=== PATIENT | female | born 1955 | race Caucasian/White ===

== ENCOUNTER 2021-03-26 17:51 | Inpatient (IN) ==
[2021-03-26] MEDS ORDERED: IOPAMIDOL 100 ML BOTTLE IV ONE (17:52)
--- NOTE | 2021-03-26 17:59 | Emergency Department Note ---
Female Urogenital HPI General Chief complaint: Flank Pain Stated complaint: flank pain Time Seen by Provider: 03/26/21 17:58 Source: patient Mode of arrival: ambulatory Limitations: no limitations History of Present Illness HPI Narrative: This is 66-year-old female patient who presents with acute onset nausea and vomiting and right lower quadrant and flank pain with radiation to the groin. She's had some chills, but no fevers. She has a history of atrial fibrillation and she noted her pulse to be 137 bpm earlier in the day. She has had some urinary hesitancy, but no dysuria. She has noted some "pink urine." She denies history of kidney stones. She was on an antibiotic about a month ago that was prescribed by Dr. Michael for UTI. She cannot tell me what that antibiotic was but states it was for 10 days. Her medical history is otherwise notable for diabetes and hypertension. She was recently prescribed lisinopril and has been on this for about 2 weeks. She has not been able to keep medications down today. Heart rate is 124 bpm and an EKG shows sinus tachycardia and a QTc interval of 528 ms. Related Data Home Medications Medication Instructions Recorded Confirmed diltiazem HCl 180 mg PO DAILY 03/26/21 03/26/21 ergocalciferol (vitamin D2) 50 mcg PO QDAY 03/26/21 03/26/21 loratadine [Allerclear] 10 mg PO QDAY 03/26/21 03/26/21 metformin 500 mg PO TID 03/26/21 03/26/21 metoprolol tartrate See Rx Instructions .ROUTE 03/26/21 03/26/21 .COMPLEX PRN rivaroxaban [Xarelto] 20 mg PO DAILY 03/26/21 03/26/21 sertraline 150 mg PO DAILY 03/26/21 03/26/21 Allergies Allergy/AdvReac Type Severity Reaction Status Date / Time No Known Drug Allergies Allergy Verified 03/26/21 17:59 Review of Systems ROS ROS Narrative: Narrative: All systems ED: reviewed and negative except as stated. [facility] Narrative Patient History Narrative: Narrative: Medical/Surgical/Family History All Active Problems (Updated 03/26/21 @ 20:25 by Park Buckley PA-C) Obstructive uropathy (Acute) Encounter for immunization (Acute) Medical History Encounter for immunization Social History Smoking Status: Never smoker Exam Narrative Narrative: General: AOx3, NAD, nontoxic appearing. Pleasant and conversant. HEENT: PERRLA, EOMI, normocephalic. Moist mucous membranes. Normal facies. Chest: Symmetric, no pain to palpation Respiratory: Lungs clear to auscultation bilaterally. No respiratory distress. Unlabored breathing. Heart: Regular rate and rhythm, no murmurs/clicks/rubs. Abdomen: Tenderness to the epigastrium and right upper quadrant. She has negative McBurney sign. No sensory of mild right CVA tenderness. Normal bowel tones. No organomegaly. Extremities: Warm and well perfused. No edema. DP 2+ bilaterally. No venous stasis. Neuro: No focal deficits. Cranial nerves II-XII normal. Skin: Warm dry, no rashes or lesions, no cyanosis. Psych: Normal mood and affect Heme/Lymph: No bruising General Limitations: no limitations Course Course Course Narrative: 66-year-old female presents with acute onset nausea and vo miting with abdominal pain and right CVA tenderness with pain radiating to the right groin. Reevaluation(s) Reevaluation #1: Basic labs, UA, [id number] creatinine and abdominal ultrasound with contrast. Antiemetics and analgesics IV fluids Given her tachycardia will work-up for sepsis with a lactic acid and blood cultures Reevaluation #2: Lactic acid is elevated at 3.4. Telemetry is showing atrial fibrillation. Her UA is incomplete but does show positive leukocyte esterase and negative nitrates. White blood cell count is elevated at 12.9. She does have a creatinine of 1.2. Blood glucose is elevated at 193. CT scan with contrast shows a moderate right-sided hydroureteronephrosis secondary to an obstructing 9 x 8 mm right UPJ calculus. There is associated periureteral and perinephric fat stranding. Dr. Tovar, urology has been notified and he will be asking the hospitalist service to admit with urology consulting. Plan is for placement of a ureteral stent. Vital Signs Vital signs: Vital Signs Temperature 97.7 F 03/26/21 17:51 Pulse Rate 111 H 03/26/21 17:51 Respiratory Rate 16 03/26/21 17:51 Blood Pressure 184/93 03/26/21 17:51 Pulse Oximetry (%) 97 03/26/21 17:51 Temperature 97.6 F 03/27/21 04:46 Pulse Rate 54 L 03/27/21 00:02 Respiratory Rate 13 03/27/21 04:01 Blood Pressure 126/87 03/27/21 04:01 Pulse Oximetry (%) 99 03/27/21 06:58 MDM MDM Narrative Medical decision making narrative: Obstructive uropathy Right ureteral lithiasis Lactic acidosis Sepsis The patient has been given 1 L IV fluid replacement. She has been signed out to the hospitalist service for admission and placement of a ureteral stent by Dr. Tovar, urology. Blood cultures x2 are pending. Urine has been resent. Lab Data Result diagrams: 03/26/21 18:12 03/26/21 18:12 Labs: Lab Results 03/26/21 03/26/21 03/26/21 Range/Units 18:10 18:12 18:12 WBC 12.9 H (4.5-11.0) K/mcL RBC 5.56 H (4.00-5.20) M/mcL Hgb 10.8 L (12.0-15.0) g/dL Hct 35.3 L (36.0-48.0) % MCV 63.5 L (80.0-100.0) fL MCH 19.4 L (26.0-34.0) pg MCHC 30.6 L (31.0-36.0) g/dL RDW 15.8 H (11.5-14.5) % Plt Count 212 (140-440) K/mcL MPV 10.5 H (7.4-10.4) fL Seg Neutrophils % 90 H (38-78) % Lymphocytes % 5 L (15-49) % Monocytes % (Manual) 4 (1-12) % Basophils % (Manual) 1 (0-2) % Platelet Estimate Normal (Normal) RBC Morphology Abnormal A (Normal) Polychromasia 1+ A (None Seen) Hypochromasia 1+ A (None Seen) Anisocytosis 1+ A (None Seen) Microcytosis 2+ A (None Seen) VBG Lactic Acid (0.5-2.0) mmol/L Sodium 132 L (133-145) mmol/L Potassium 4.1 (3.3-5.1) mmol/L Chloride 98 (96-108) mmol/L Carbon Dioxide 19 L (22-30) mmol/L Anion Gap 15.0 (8.0-16.0) BUN 23 (8-23) mg/dL Creatinine 1.2 H (0.6-1.1) mg/dL POC Creatinine 1.4 H (0.6-1.2) mg/dL GFR Calculation 46 Glucose 193 H (70-105) mg/dL Calcium 9.8 (8.6-10.4) mg/dL Total Bilirubin 1.1 H (0.1-1.0) mg/dL AST 17 (<32) U/L ALT 11 (<40) U/L Alkaline Phosphatase 102 (39-117) U/L Total Protein 8.1 (5.9-8.4) gm/dL Albumin 4.2 (3.2-5.2) gm/dL Globulin 3.9 H (2.2-3.7) gm/dL Albumin/Globulin Ratio 1.1 (1.0-2.3) Urine Color Yellow Urine Appearance Clear (Clear) Urine pH 5.5 (5.0-9.0) Ur Specific [place] >= 1.030 (1.000-1.035) Urine Protein >=300 mg/dl A (Negative) mg/dL Urine Glucose (UA) Negative (Negative) mg/dL Urine Ketones Trace A (Negative) mg/dL Urine Occult Blood Large A (Negative) jason/mcL Urine Nitrate Negative (Negative) Urine Bilirubin Small A (Negative) mg/dL Urine Urobilinogen Normal mg/dL Ur Leukocyte Esterase Small A (Negative) /ug Urine RBC TNP Urine WBC TNP Ur Squamous Epith Cells TNP Ur Transition Epith Cell TNP Ur Renal Epithelial Cell TNP Calcium Carbonate Cryst TNP Calcium Phosphate Cryst TNP Calcium Oxalate Crystal TNP Leucine Crystals TNP Cystine Crystals TNP Uric Acid Crystals TNP Triple Phos Crystals TNP Tyrosine Crystals TNP Other Crystals TNP Amorphous Crystals TNP Urine Bacteria TNP Cellular Casts TNP Epithelial Casts TNP Fatty Casts TNP Hyaline Casts TNP Granular Casts TNP Waxy Casts TNP Broad Casts TNP RBC Casts TNP WBC Casts TNP Other Casts TNP Urine Mucus TNP Urine Trichomonas TNP Ur Yeast w Hyphae TNP Urine Yeast (Budding) TNP Urine Sperm TNP Ur Oval Fat Bodies TNP Ur Free Fat Droplets TNP Ur Culture Indicated? No 03/26/21 03/26/21 Range/Units 18:12 20:19 WBC (4.5-11.0) K/mcL RBC (4.00-5.20) M/mcL Hgb (12.0-15.0) g/dL Hct (36.0-48.0) % MCV (80.0-100.0) fL MCH (26.0-34.0) pg MCHC (31.0-36.0) g/dL RDW (11.5-14.5) % Plt Count (140-440) K/mcL MPV (7.4-10.4) fL Seg Neutrophils % (38-78) % Lymphocytes % (15-49) % Monocytes % (Manual) (1-12) % Basophils % (Manual) (0-2) % Platelet Estimate (Normal) RBC Morphology (Normal) Polychromasia (None Seen) Hypochromasia (None Seen) Anisocytosis (None Seen) Microcytosis (None Seen) VBG Lactic Acid 3.4 H (0.5-2.0) mmol/L Sodium (133-145) mmol/L Potassium (3.3-5.1) mmol/L Chloride (96-108) mmol/L Carbon Dioxide (22-30) mmol/L Anion Gap (8.0-16.0) BUN (8-23) mg/dL Creatinine (0.6-1.1) mg/dL POC Creatinine (0.6-1.2) mg/dL GFR Calculation Glucose (70-105) mg/dL Calcium (8.6-10.4) mg/dL Total Bilirubin (0.1-1.0) mg/dL AST (<32) U/L ALT (<40) U/L Alkaline Phosphatase (39-117) U/L Total Protein (5.9-8.4) gm/dL Albumin (3.2-5.2) gm/dL Globulin (2.2-3.7) gm/dL Albumin/Globulin Ratio (1.0-2.3) Urine Color Yellow Urine Appearance Hazy A (Clear) Urine pH 5.0 (5.0-9.0) Ur Specific [place] 1.039 (1.000-1.035) Urine Protein 30 A (Negative) mg/dL Urine Glucose (UA) Negative (Negative) mg/dL Urine Ketones Negative (Negative) mg/dL Urine Occult Blood >=1.0 A (Negative) jason/mcL Urine Nitrate Negative (Negative) Urine Bilirubin Negative (Negative) mg/dL Urine Urobilinogen Negative mg/dL Ur Leukocyte Esterase 75 A (Negative) /ug Urine RBC > 182 H Urine WBC 5 H Ur Squamous Epith Cells 2 Ur Transition Epith Cell Ur Renal Epithelial Cell Calcium Carbonate Cryst Calcium Phosphate Cryst Calcium Oxalate Crystal Leucine Crystals Cystine Crystals Uric Acid Crystals Triple Phos Crystals Tyrosine Crystals Other Crystals Amorphous Crystals Urine Bacteria 0 Cellular Casts Epithelial Casts Fatty Casts Hyaline Casts Granular Casts Waxy Casts Broad Casts RBC Casts WBC Casts Other Casts Urine Mucus Urine Trichomonas Ur Yeast w Hyphae Urine Yeast (Budding) Urine Sperm Ur Oval Fat Bodies Ur Free Fat Droplets Ur Culture Indicated? No ED POC Tests ED POC Tests: JAYESH - SARS Antigen Negative Discharge Plan Patient/Caregiver Discharge Instructions Pt seen by PLATER SUPERVISOR/PA only: Yes Clinical Impression: Obstructive uropathy Patient Disposition: Xfer As Inpt ([facility]) Condition: Good Discharge Date/Time: 03/26/21 21:30
[2021-03-26] MEDS ORDERED: ONDANSETRON 4 MG/2 ML VIAL IV ONE (18:03)
[2021-03-26] MEDS ORDERED: HYDROmorphone 1 MG/ML SYRINGE IV ONE (18:03)
[2021-03-26 18:33] LABS: POC Creatinine 1.4 mg/dL (0.6-1.2)
[2021-03-26] MEDS ORDERED: 0.9 % SODIUM CHLORIDE 1,000 ML IV ONE ×2 (18:44→20:25)
[2021-03-26 19:14] LABS: Hematocrit 35.3 % (36.0-48.0); Hemoglobin 10.8 g/dL (12.0-15.0); Mean Cell Volume 63.5 fL (80.0-100.0); Mean Corpuscular HGB Conc 30.6 g/dL (31.0-36.0); Mean Platelet Volume 10.5 fL (7.4-10.4); Platelet Count 212 K/mcL (140-440); RBC 5.56 M/mcL (4.00-5.20); Red Cell Distribution Width 15.8 % (11.5-14.5); WBC 12.9 K/mcL (4.5-11.0)
[2021-03-26 19:21] LABS: Appearance,Urine Clear (Clear); Bilirubin,Urine Small mg/dL (Negative); Color,Urine Yellow; Culture Indicated,Urine No; Glucose,Urine (UA) Negative (Negative); Ketones,Urine Trace mg/dL (Negative); Leukocyte Esterase,Urine Small /ug (Negative); Nitrate,Urine Negative (Negative); PH,Urine 5.5 (5.0-9.0); Protein,Urine >=300 mg/dL mg/dL (Negative); Specific Gravity,Urine >= 1.030 (1.000-1.035); Urine Blood Large ery/mcL (Negative); Urobilinogen,Urine Normal
[2021-03-26 19:34] LABS: ALT/SGPT 11 U/L (<40); AST/SGOT 17 U/L (<32); Albumin 4.2 gm/dL (3.2-5.2); Albumin/Globulin Ratio 1.1 (1.0-2.3); Alkaline Phosphatase 102 U/L (39-117); Bilirubin,Total 1.1 mg/dL (0.1-1.0); Blood Urea Nitrogen 23 mg/dL (8-23); Calcium 9.8 mg/dL (8.6-10.4); Carbon Dioxide 19 mmol/L (22-30); Chloride 98 mmol/L (96-108); Globulin 3.9 gm/dL (2.2-3.7); Glomerular Filtration Rate 46; Glucose 193 mg/dL (70-105)
[2021-03-26] MEDS ORDERED: HYDROmorphone 1 MG/ML SYRINGE IV PRN (20:25)
[2021-03-26 20:29] LABS: Anisocytosis 1+ (None Seen); Basophils % (Manual) 1 % (0-2); Hypochromasia 1+ (None Seen); Lymphocytes % 5 % (15-49); Microcytosis 2+ (None Seen); Monocytes % (Manual) 4 % (1-12); Platelet Estimate NORMAL (Normal); Polychromasia 1+ (None Seen); RBC Morphology ABNORMAL (Normal); Segmented Neutrophils % 90 % (38-78)
--- NOTE | 2021-03-26 20:43 | Internal Med History&Physical ---
HPI History of Present Illness Patient information: Note initiated : 03/26/21 at 8:36 pm Service Date, if different from initiated Date: [] Patient: Aubrie Acosta a 66 y/o F admitted on for flank pain. Chief Complaint: [] History of present illness: Ms. Acosta is a 66 year old F The ED after nausea vomiting right flank pain. The patient she has been dealing with urinary tract infections recently and has been on several different antibiotics by her primary care provider. Because of nausea vomiting and severe right pain she came in today and had evaluation in the ED which showed obstructing stone in the right collecting system with hydronephrosis and hydroureter. Imaging is also consistent with pyelonephritis. She has tenderness to touch in right flank. She had a mild leukocytosis. Was afebrile. Tachycardic she does have atrial fibrillation although she was in sinus. Creatinine bumped a little bit above baseline. Lactate elevated 3.4. She denies fever but has chills. And headache. She did have a little bit of diarrhea. Dr. Tovar was contacted who will perform cystoscopy and stone removal in the morning. Review of Systems: Pertinent positives as above. denies fever/chest pain/cough/dyspnea. Remaining 10 point review of system reviewed negative PFSH PFSH All Active Problems (Updated 03/26/21 @ 20:25 by Park Buckley PA-C) Obstructive uropathy (Acute) Encounter for immunization (Acute) Medical History Encounter for immunization MEDS/ALLERGIES Home Medications and Allergies Home Medications Medication Instructions Recorded Confirmed Type diltiazem HCl 180 mg PO DAILY 03/26/21 03/26/21 History ergocalciferol (vitamin D2) 50 mcg PO QDAY 03/26/21 03/26/21 History loratadine [Allerclear] 10 mg PO QDAY 03/26/21 03/26/21 History metformin 500 mg PO TID 03/26/21 03/26/21 History metoprolol tartrate See Rx Instructions .ROUTE 03/26/21 03/26/21 History .COMPLEX PRN rivaroxaban [Xarelto] 20 mg PO DAILY 03/26/21 03/26/21 History sertraline 150 mg PO DAILY 03/26/21 03/26/21 History Allergies Allergy/AdvReac Type Severity Reaction Status Date / Time No Known Drug Allergies Allergy Verified 03/26/21 17:59 EXAM Constitutional Vitals: Temp Pulse Resp BP Pulse Ox 97.7 F 121 H 16 151/100 96 03/26/21 17:51 03/26/21 20:16 03/26/21 20:16 03/26/21 20:16 03/26/21 20:16 Exam: General: Alert, Awake, No acute Distress Eyes/N/T: EOMI, PERRL, dry MM Head/Neck: neck supple, normocephalic atraumatic CV: Tacky but regular, No murmurs, normal s1/s2 Pulm: Clear b/l, no wheezing/rhonchi/rales Abd: soft, nontender, +BS x4. Tenderness to palpation of CVA Ext: no clubbing/cyanosis/edema Neuro: Alert, no focal deficits, moves all extremities, CN 2-12 grossly intact, symmetrical strength b/l upper/lower, sensations intact b/l upper/lower Skin: warm/dry DATA Data Completed and Pending Labs: Labs from last 24 hours 03/26/21 03/26/21 03/26/21 20:19 18:12 18:12 WBC RBC Hgb Hct MCV MCH MCHC RDW Plt Count MPV Seg Neutrophils % Lymphocytes % Monocytes % (Manual) Basophils % (Manual) Platelet Estimate RBC Morphology Polychromasia Hypochromasia Anisocytosis Microcytosis VBG Lactic Acid 3.4 H Sodium 132 L Potassium 4.1 Chloride 98 Carbon Dioxide 19 L Anion Gap 15.0 BUN 23 Creatinine 1.2 H POC Creatinine 1.4 H GFR Calculation 46 Glucose 193 H Calcium 9.8 Total Bilirubin 1.1 H AST 17 ALT 11 Alkaline Phosphatase 102 Total Protein 8.1 Albumin 4.2 Globulin 3.9 H Albumin/Globulin Ratio 1.1 Urine Color Pending Urine Appearance Pending Urine pH Pending Ur Specific [place] Pending Urine Protein Pending Urine Glucose (UA) Pending Urine Ketones Pending Urine Occult Blood Pending Urine Nitrate Pending Urine Bilirubin Pending Urine Urobilinogen Pending Ur Leukocyte Esterase Pending Urine RBC Urine WBC Ur Squamous Epith Cells Ur Transition Epith Cell Ur Renal Epithelial Cell Calcium Carbonate Cryst Calcium Phosphate Cryst Calcium Oxalate Crystal Leucine Crystals Cystine Crystals Uric Acid Crystals Triple Phos Crystals Tyrosine Crystals Other Crystals Amorphous Crystals Urine Bacteria Cellular Casts Epithelial Casts Fatty Casts Hyaline Casts Granular Casts Waxy Casts Broad Casts RBC Casts WBC Casts Other Casts Urine Mucus Urine Trichomonas Ur Yeast w Hyphae Urine Yeast (Budding) Urine Sperm Ur Oval Fat Bodies Ur Free Fat Droplets Ur Culture Indicated? 03/26/21 03/26/21 18:12 18:10 WBC 12.9 H RBC 5.56 H Hgb 10.8 L Hct 35.3 L MCV 63.5 L MCH 19.4 L MCHC 30.6 L RDW 15.8 H Plt Count 212 MPV 10.5 H Seg Neutrophils % 90 H Lymphocytes % 5 L Monocytes % (Manual) 4 Basophils % (Manual) 1 Platelet Estimate Normal RBC Morphology Abnormal A Polychromasia 1+ A Hypochromasia 1+ A Anisocytosis 1+ A Microcytosis 2+ A VBG Lactic Acid Sodium Potassium Chloride Carbon Dioxide Anion Gap BUN Creatinine POC Creatinine GFR Calculation Glucose Calcium Total Bilirubin AST ALT Alkaline Phosphatase Total Protein Albumin Globulin Albumin/Globulin Ratio Urine Color Yellow Urine Appearance Clear Urine pH 5.5 Ur Specific [place] >= 1.030 Urine Protein >=300 mg/dl A Urine Glucose (UA) Negative Urine Ketones Trace A Urine Occult Blood Large A Urine Nitrate Negative Urine Bilirubin Small A Urine Urobilinogen Normal Ur Leukocyte Esterase Small A Urine RBC TNP Urine WBC TNP Ur Squamous Epith Cells TNP Ur Transition Epith Cell TNP Ur Renal Epithelial Cell TNP Calcium Carbonate Cryst TNP Calcium Phosphate Cryst TNP Calcium Oxalate Crystal TNP Leucine Crystals TNP Cystine Crystals TNP Uric Acid Crystals TNP Triple Phos Crystals TNP Tyrosine Crystals TNP Other Crystals TNP Amorphous Crystals TNP Urine Bacteria TNP Cellular Casts TNP Epithelial Casts TNP Fatty Casts TNP Hyaline Casts TNP Granular Casts TNP Waxy Casts TNP Broad Casts TNP RBC Casts TNP WBC Casts TNP Other Casts TNP Urine Mucus TNP Urine Trichomonas TNP Ur Yeast w Hyphae TNP Urine Yeast (Budding) TNP Urine Sperm TNP Ur Oval Fat Bodies TNP Ur Free Fat Droplets TNP Ur Culture Indicated? No A/P Narrative A/P Narrative: A: *Obstructive uropathy with hydronephrosis/ureter: *Pyelonephritis: *Sepsis with endorgan dysfunction: -elevated lactate on admit *PAF: On diltiazem and Xarelto *FENG on CKD stage III: *Anemia, chronic: *HTN: *DM: *Mild hyponatremia: *Depression: * P: -Dr. Tovar for urology -Rocepperezn pending UC/BC -IVF -SSI, hold metformin for now -Continue home diltiazem, hold ARB for FENG -Hold Metformin for now - -pt/to -ppx: scd (hold xaralto until post-op) full code Time Spent With Patient Time: Total time spent is greater than 50% in coordination of care (as documented) at patient's floor/unit and/or counseling patient:
[2021-03-26 20:58] LABS: Appearance,Urine HAZY (Clear); Bacteria,Urine 0 /hpf (0); Bilirubin,Urine Negative (Negative); Color,Urine YELLOW; Culture Indicated,Urine No; Glucose,Urine (UA) Negative (Negative); Ketones,Urine Negative (Negative); Leukocyte Esterase,Urine 75 /ug (Negative); Nitrate,Urine Negative (Negative); Protein,Urine 30 mg/dL (Negative); Specific Gravity,Urine 1.039 (1.000-1.035); Urine Blood >=1.0 mg/dL (Negative); Urine RBC > 182 /hpf (0-1); Urine Squamous Epithelial Cell 2 /hpf (0-4); Urine WBC 5 /hpf (0-4); Urobilinogen,Urine Negative
[2021-03-26] MEDS ORDERED: POLYETHYLENE GLYCOL 3350 17 GM PACKET PO PRN (21:43)
[2021-03-26] MEDS ORDERED: DEXTROSE 31 GM ORAL.SUSP PO PRN (21:43)
[2021-03-26] MEDS ORDERED: ACETAMINOPHEN 325 MG TABLET PO PRN (21:43)
[2021-03-26] MEDS ORDERED: ONDANSETRON 4 MG/2 ML VIAL IV PRN (21:43)
[2021-03-26] MEDS ORDERED: SENNOSIDES 1 TABLET PO PRN (21:43)
[2021-03-26] MEDS ORDERED: POTASSIUM CHLORIDE 40 MEQ in DEXTROSE 5% IN WATER 500 ML IV PRN (21:43)
[2021-03-26] MEDS ORDERED: MAGNESIUM SULFATE 2 GM/50 ML BAG IV PRN (21:43)
[2021-03-26] MEDS ORDERED: IPRATROPIUM/ALBUTEROL 3 ML AMPUL.NEB NEB PRN (21:43)
[2021-03-26] MEDS ORDERED: DEXTROSE 50% 50 ML VIAL IV PRN (21:43)
[2021-03-26] MEDS ORDERED: 0.9 % SODIUM CHLORIDE 1,000 ML IV SCH (21:43)
[2021-03-26] MEDS ORDERED: POTASSIUM CHLORIDE 20 MEQ TABLET PO PRN ×2 (21:43)
[2021-03-26] MEDS ORDERED: cefTRIAXone 2 GM VIAL ONE (22:27)
[2021-03-26] MEDS: 0.9 % SODIUM CHLORIDE 10 ML SYRINGE IV SCH (22:30)
[2021-03-26] MEDS: cefTRIAXone 2 GM in DEXTROSE 5% IN WATER 50 ML IV SCH (22:36)
[2021-03-26] MEDS: INSULIN LISPRO 1 UNIT/0.01 ML UNIT SQ SCH (22:37)
[2021-03-26] MEDS: HYDROcodone/APAP 5/325MG TABLET PO PRN (23:09)
[2021-03-26] MEDS: morphine 4 MG/ML VIAL IV PRN (23:32)
[2021-03-27] MEDS: morphine 4 MG/ML VIAL IV PRN ×2 (01:54→05:27)
--- NOTE | 2021-03-27 03:33 | Cat Scan Report ---
CLINICAL INFORMATION: Right-sided abdominal pain nausea and vomiting COMPARISON: None. TECHNIQUE: Following enteric contrast, 80 cc of Isovue-[id number] were injected intravenously, and 60 seconds later, 0.625 mm helical slices were obtained from the mid heart through the subtrochanteric regions. Following reconstruction, 2.5 mm sagittal, coronal and axial reformatted images were processed and reviewed at bone, lung and soft tissue windows. Five minutes later, 0.625 mm helical slices were obtained from the mid heart through the kidneys and viewed at soft tissue windows.The exam was performed using radiation dose optimization techniques including, but not limited to, automated exposure control, adjustment of the mA and/or kV according to patient size and use of iterative reconstruction technique. FINDINGS: Lung bases show no abnormality-no effusion. The visualized heart is mildly enlarged. Scattered calcific plaque in the visualized coronary arteries. Abdominal images show cholecystectomy changes. Common bile duct is mildly dilated, 9 mm, compatible with post cholecystectomy state. The liver, pancreas and both adrenal glands are normal in size, configuration and attenuation without focal lesion. Spleen is normal in size. 18 mm low-attenuation lesion in the lesion is almost certainly benign-likely a cyst or benign hemangioma The aorta is normal diameter-19 mm. There is moderate fibrofatty plaque in the aortic branches with stenoses are greater than 70% in the right renal artery and 50% in the left renal artery. Celiac, SMA, KARO and iliac arteries contain plaque, but no stenoses. There is no free air, free fluid or adenopathy. A 9 x 5 mm stone in the right UVJ resulting severe right hydroureter/hydronephrosis and mild perinephric edema. A 4 mm nonobstructing stone in the superior calyx left kidney and a 1 mm nonobstructing stone inferior calyx left kidney are appreciated. A 2.2 cm low-attenuation lesion posterior cortex of the superior right kidney measures 16 Hounsfield units and should represent a simple cyst. Pelvic images show urinary bladder is unremarkable. Hysterectomy and oophorectomy changes appreciated. Multiple sigmoid diverticuli appreciated but no evidence of diverticulitis. The remaining large bowel, appendix, small bowel and stomach are normal. Bone windows show no osseous abnormality. IMPRESSION: 1. 9 x 5 mm stone in the right UVJ resulting in severe right hydroureter/hydronephrosis. This may or may not pass spontaneously. 2. 4 mm nonobstructing stone superior calyx left kidney 1 mm nonobstructing stone inferior calyx left kidney. 3. Greater than 70% stenosis of the right renal artery. 50% stenosis left renal artery. Please correlate with hypertension. 4. 22 mm cyst-inferior right kidney. 5. 18 mm low-attenuation lesion in the anterior spleen is likely cyst or benign hemangioma or lymphangioma. 6. Sigmoid diverticulosis, but no evidence of diverticulitis Suggest abdominal ultrasound and renal artery Doppler to confirm cysts (or other benign lesion) in the spleen and right kidney and to evaluate for renal artery stenosis Interpreted and Authenticated by: Lucas Russell 03/27/21
[2021-03-27] MEDS: 0.9 % SODIUM CHLORIDE 10 ML SYRINGE IV SCH ×3 (04:25→21:41)
[2021-03-27] MEDS: HYDROcodone/APAP 5/325MG TABLET PO PRN ×2 (05:23→19:36)
--- NOTE | 2021-03-27 07:17 | Internal Med Progress Note ---
SUBJECTIVE Subjective Patient information: Note initiated : 03/27/21 at 7:14 am Service Date, if different from initiated Date: [] Patient: Aubrie Acosta 66 y/o F admitted on 03/26/21 for flank pain. Chief Complaint: [] Interval history: History of present illness: Ms. Acosta is a 66 year old F The ED after nausea vomiting right flank pain. The patient she has been dealing with urinary tract infections recently and has been on several different antibiotics by her primary care provider. Because of nausea vomiting and severe right pain she came in today and had evaluation in the ED which showed obstructing stone in the right collecting system with hydronephrosis and hydroureter. Imaging is also consistent with pyelonephritis. She has tenderness to touch in right flank. She had a mild leukocytosis. Was afebrile. Tachycardic she does have atrial fibrillation although she was in sinus. Creatinine bumped a little bit above baseline. Lactate elevated 3.4. She denies fever but has chills. And headache. She did have a little bit of d iarrhea. Dr. Tovar was contacted who will perform cystoscopy and stone removal in the morning. 03/27 Other than poor sleep for me in the hospital she has no new complaints. Right flank pain relatively controlled. Renal function stable today. Review of Systems: Mild headache. Denies fever/chills/nausea/vomiting/chest or abdominal pain/cough/dyspnea/diarrhea. Otherwise see above. Constitutional Vitals: Vital Signs Temp Pulse Resp BP Pulse Ox 97.6 F 54 L 13 126/87 99 03/27/21 04:46 03/27/21 00:02 03/27/21 04:01 03/27/21 04:01 03/27/21 04:01 Period Temp Pulse Resp BP Sys/Grey Pulse Ox Last 24 Hr 97.6 F-98.9 F 52-124 12-24 126-184/73-117 93-99 Intake and Output 03/26/21 03/27/21 03/27/21 21:59 05:59 13:59 Intake Total 1932 593 Output Total 500 Balance 1931 93 Weight 90.718 kg 93.259 kg Intake & Output: Intake & Output 03/26/21 03/27/21 03/27/21 21:59 05:59 13:59 Intake Total 1932 593 Output Total 500 Balance 1931 93 Weight 90.718 kg 93.259 kg Intake: IV 1931 118 Sodium Chloride 0.9% 1,000 ml @ 193 68 Wide Open IV [facility] Rx#: [id number] Rocephin 2 gm In Dextrose 5% in 50 Water 50 ml @ 100 mls/hr IV Q24H [facility] Rx#:[id number] Oral 475 Output: Void Amount 500 Other: Urine Appearance Clear Urine Color Dark Yellow Stool Consistency Loose Exam: General: Alert, Awake, No acute Distress Eyes/N/T: EOMI, Head/Neck: neck supple CV: RRR, No murmurs, Pulm: Clear b/l, no wheezing/rhonchi/rales Abd: soft, nontender, +BS x4. Tenderness to palpation of CVA Ext: no clubbing/cyanosis/edema Neuro: Alert, no focal deficits, moves all extremities, Skin: warm/dry OBJ DATA Labs CBC & Chem 7: 03/27/21 05:30 03/27/21 05:30 Labs: Abnormal Lab Results 03/26/21 03/26/21 03/26/21 20:19 18:12 18:12 WBC RBC Hgb Hct MCV MCH MCHC RDW MPV Seg Neutrophils % Lymphocytes % RBC Morphology Polychromasia Hypochromasia Anisocytosis Microcytosis VBG Lactic Acid 3.4 H Sodium 132 L Carbon Dioxide 19 L Creatinine 1.2 H POC Creatinine 1.4 H Glucose 193 H Total Bilirubin 1.1 H Globulin 3.9 H Urine Appearance Hazy A Urine Protein 30 A Urine Ketones Urine Occult Blood >=1.0 A Urine Bilirubin Ur Leukocyte Esterase 75 A Urine RBC > 182 H Urine WBC 5 H 03/26/21 03/26/21 18:12 18:10 WBC 12.9 H RBC 5.56 H Hgb 10.8 L Hct 35.3 L MCV 63.5 L MCH 19.4 L MCHC 30.6 L RDW 15.8 H MPV 10.5 H Seg Neutrophils % 90 H Lymphocytes % 5 L RBC Morphology Abnormal A Polychromasia 1+ A Hypochromasia 1+ A Anisocytosis 1+ A Microcytosis 2+ A VBG Lactic Acid Sodium Carbon Dioxide Creatinine POC Creatinine Glucose Total Bilirubin Globulin Urine Appearance Urine Protein >=300 mg/dl A Urine Ketones Trace A Urine Occult Blood Large A Urine Bilirubin Small A Ur Leukocyte Esterase Small A Urine RBC Urine WBC Meds: Medications Acetaminophen (Acetaminophen 325 Mg Tablet) 650 mg PO Q6HP PRN PRN Reason: PAIN/FEVER > 101 Hydrocodone Bitart/Acetaminophen (Hydrocodone/Apap 5/325mg Tablet) 1 tab PO Q4HP PRN PRN Reason: PAIN LEVEL 3-6 Last Admin: 03/27/21 05:23 Dose: 1 tab Documented by: Albuterol/Ipratropium (Ipratropium/Albuterol 3 Ml Ampul.Neb) 3 ml NEB Q4HP PRN PRN Reason: Shortness Of Breath Dextrose (Dextrose 50% 50 Ml Vial) 0 ml IV UD PRN PRN Reason: Hypoglycemia Diagnostic Test (Pha) (Accu-Chek 1 Each Strip) 1 each FS [facility] Last Admin: 03/26/21 22:20 Dose: 1 each Documented by: Diltiazem HCl (Diltiazem 180 Mg Cap.Xl.24h) 180 mg PO DAILY [facility] Glucose (Dextrose 31 Gm Oral.Susp) 15 gm PO PRN PRN PRN Reason: Hypoglycemia Potassium Chloride 40 meq/ (Dextrose) 520 mls @ 130 mls/hr IV UD PRN PRN Reason: Potassium < 3 Magnesium Sulfate (Magnesium Sulfate) 2 gm in 50 mls @ 50 mls/hr IV UD PRN PRN Reason: Magnesium </= 1.6 Sodium Chloride (Sodium Chloride 0.9%) 1,000 mls @ 100 mls/hr IV .Q10H [facility] Stop: 03/27/21 07:42 Last Admin: 03/27/21 01:49 Dose: 100 mls/hr Documented by: Ceftriaxone Sodium 2 gm/ (Dextrose) 50 mls @ 100 mls/hr IV Q24H [facility]; Protocol Last Infusion: 03/27/21 00:39 Dose: Infused Documented by: Insulin Human Lispro (Insulin Lispro 1 Unit/0.01 Ml Unit) 0 unit SQ [facility]; Protocol Last Admin: 03/26/21 22:37 Dose: 2 units Documented by: Metoprolol Tartrate (Metoprolol Tartrate 5 Mg/5 Ml Vial) 5 mg IV Q2HP PRN PRN Reason: Tachyarrhythmias HR>110 Morphine Sulfate (Morphine 4 Mg/Ml Vial) 0 mg IV Q3HP PRN PRN Reason: Pain Last Admin: 03/27/21 05:27 Dose: 1 mg Documented by: Ondansetron HCl (Ondansetron 4 Mg/2 Ml Vial) 4 mg IV Q4HP PRN PRN Reason: Nausea And Vomiting Polyethylene Glycol (Polyethylene Glycol 3350 17 Gm Packet) 17 gm PO DAILYP PRN PRN Reason: Constipation Potassium Chloride (Potassium Chloride 20 Meq Tablet) 40 meq PO UD PRN PRN Reason: Potssium is 3-3.5 Potassium Chloride (Potassium Chloride 20 Meq Tablet) 40 meq PO UD PRN PRN Reason: Potassium < 3 Senna (Sennosides 1 Tablet) 2 tab PO DAILYP PRN PRN Reason: Constipation Sertraline HCl (Sertraline 100 Mg Tablet) 150 mg PO DAILY [facility] Sodium Chloride (0.9 % Sodium Chloride 10 Ml Syringe) 10 ml IV Q8 [facility] Last Admin: 03/27/21 04:25 Dose: Not Given Documented by: A/P Narrative A/P Narrative: A: *Obstructive uropathy with hydronephrosis/ureter: *Pyelonephritis: *Sepsis with endorgan dysfunction: -elevated lactate on admit *PAF: On diltiazem and Xarelto *FENG on CKD stage III: *Anemia, chronic: *HTN: *DM: *Mild hyponatremia: *Depression: * P: -Dr. Tovar for urology -Rocephin pending UC/BC -IVF, -SSI, hold metformin for now -Continue home diltiazem, hold ARB for FENG -Hold Metformin for now - -pt/to -ppx: scd (hold xaralto until post-op) full code Time Spent With Patient Time: Total time spent is greater than 50% in coordination of care (as d ocumented) at patient's floor/unit and/or counseling patient: QUALITY VTE Deep Vein Thrombosis/Pulmonary Embolism Present on Admission: No
[2021-03-27 07:48] LABS: Basophils # (Auto) 0.08 K/mcL (0.00-0.20); Basophils % (Auto) 0.8 % (0.0-2.0); Eosinophils # (Auto) 0.39 K/mcL (0.00-0.70); Eosinophils % (Auto) 3.8 % (0.0-7.0); Hematocrit 31.1 % (36.0-48.0); Hemoglobin 9.5 g/dL (12.0-15.0); Lymphocytes # (Auto) 2.05 K/mcL (1.50-4.80); Mean Cell Volume 64.7 fL (80.0-100.0); Mean Corpuscular HGB Conc 30.5 g/dL (31.0-36.0); Monocytes # (Auto) 0.72 K/mcL (0.10-0.90); Neutrophils % (Auto) 68.4 % (38.0-78.0); Platelet Count 174 K/mcL (140-440); RBC 4.81 M/mcL (4.00-5.20); Red Cell Distribution Width 15.8 % (11.5-14.5); WBC 10.3 K/mcL (4.5-11.0)
[2021-03-27 08:14] LABS: ALT/SGPT 10 U/L (<40); AST/SGOT 20 U/L (<32); Albumin 3.7 gm/dL (3.2-5.2); Albumin/Globulin Ratio 1.1 (1.0-2.3); Alkaline Phosphatase 85 U/L (39-117); Bilirubin,Direct < 0.2 mg/dL (0-0.3); Bilirubin,Total 0.6 mg/dL (0.1-1.0); Blood Urea Nitrogen 19 mg/dL (8-23); Calcium 8.7 mg/dL (8.6-10.4); Carbon Dioxide 24 mmol/L (22-30); Chloride 103 mmol/L (96-108); Globulin 3.3 gm/dL (2.2-3.7); Glomerular Filtration Rate 46; Glucose 134 mg/dL (70-105); Lactate Dehydrogenase 163 U/L (135-225); Phosphorous 3.6 mg/dL (2.5-4.5); Triglycerides 278 mg/dL (<150)
[2021-03-27] MEDS: DILTIAZEM 180 MG CAP.XL.24H PO SCH ×2 (08:32→17:08)
[2021-03-27] MEDS: INSULIN LISPRO 1 UNIT/0.01 ML UNIT SQ SCH ×4 (08:32→21:29)
[2021-03-27] MEDS: SERTRALINE 100 MG TABLET PO SCH (08:32)
[2021-03-27] MEDS ORDERED: PNEUMOCOCCAL 23-VAL P-SAC VAC 0.5 ML SYRINGE IM ONE (10:00)
[2021-03-27 11:33] LABS: INR 1.2 (0.9-1.1); Prothrombin Time 15.7 sec (11.9-14.5)
[2021-03-27] MEDS ORDERED: MIDAZOLAM 2 MG/2 ML VIAL ONE (12:08)
[2021-03-27] MEDS ORDERED: GLYCOPYRROLATE 0.2 MG/ML VIAL IV ONE (12:08)
[2021-03-27] MEDS ORDERED: ONDANSETRON 4 MG/2 ML VIAL ONE (12:08)
[2021-03-27] MEDS ORDERED: KETAMINE 50 MG/ML ML ONE (12:08)
[2021-03-27] MEDS ORDERED: MAGNESIUM SULFATE 2 GM/50 ML BAG IV ONE (12:08)
[2021-03-27] MEDS ORDERED: PROPOFOL 200 MG/20 ML VIAL IV ONE (12:08)
[2021-03-27] MEDS ORDERED: VERAPAMIL 5 MG/2 ML VIAL IV ONE (12:08)
[2021-03-27] MEDS ORDERED: fentaNYL 100 MCG/2 ML VIAL IV ONE (12:08)
[2021-03-27] MEDS ORDERED: DEXAMETHASONE 10 MG/ML VIAL ONE (12:08)
[2021-03-27] MEDS ORDERED: LIDOCAINE HCL/PF 100 MG/5 ML SYRINGE IV ONE (12:08)
[2021-03-27] MEDS ORDERED: METOPROLOL TARTRATE 5 MG/5 ML VIAL IV ONE ×2 (12:08→15:41)
[2021-03-27] MEDS ORDERED: PHENYLEPHRINE 10 MG/ML VIAL ONE (12:08)
[2021-03-27] MEDS ORDERED: ESMOLOL 100 MG/10 ML VIAL IV ONE (12:08)
[2021-03-27] MEDS ORDERED: IOVERSOL 20 ML VIAL IJ ONE (12:28)
--- NOTE | 2021-03-27 13:14 | Operative Note ---
Operative Note Operative Note:
--- NOTE | 2021-03-27 13:14 | Brief Operative Note ---
Brief Operative Note Date of procedure: 03/27/21 Pre-op diagnosis: right ureteral stone Post-op diagnosis: same Procedure: right ureteroscopic laser lithotripsy Grafts/Implants: No Anesthesia: GETA Findings: same Complications: none Surgeon: Yahir Tovar Estimated blood loss (cc): 0 Specimens Removed/Pathology: other Condition: stable Disposition: PACU
[2021-03-27] MEDS ORDERED: MEPERIDINE 25 MG/ML VIAL IV PRN (13:26)
[2021-03-27] MEDS ORDERED: IPRATROPIUM/ALBUTEROL 3 ML AMPUL.NEB NEB PRN (13:26)
[2021-03-27] MEDS ORDERED: fentaNYL 100 MCG/2 ML VIAL IV PRN (13:26)
[2021-03-27] MEDS ORDERED: LACTATED RINGERS 1,000 ML IV SCH (13:30)
[2021-03-27] MEDS ORDERED: 0.9 % SODIUM CHLORIDE 10 ML SYRINGE IV SCH (14:00)
--- NOTE | 2021-03-27 14:19 | XRay Report ---
CLINICAL INFORMATION: right ureteroscopy with possible stnent placement COMPARISON: None. FINDINGS: Two digital images from the OR show a right ureteral stent. The proximal and overlies the expected location of the right renal pelvis and the distal end overlies the expected location of the urinary bladder. No stones identified. IMPRESSION: Right ureteral stent placement. Interpreted and Authenticated by: Lucas Russell 03/27/21
[2021-03-27] MEDS: cefTRIAXone 2 GM in DEXTROSE 5% IN WATER 50 ML IV SCH (14:26)
[2021-03-27] MEDS: METOPROLOL TARTRATE 5 MG/5 ML VIAL IV PRN ×2 (14:28→19:20)
--- NOTE | 2021-03-27 16:08 | Discharge Summary ---
Discharge Provider Provider Patient information: Note initiated : 03/27/21 at 4:06 pm Service Date, if different from initiated Date: [] Patient: Aubrie Acosta 66 y/o F admitted on 03/26/21 for flank pain. Chief Complaint: [] Date of admission: 03/26/21 21:30 Discharge date: 03/28/21 Primary care physician: PCP No Consults: 03/26/21 Consult to Physician [CONS] Stat Comment: Consulting Provider: Yahir Tovar Reason For Exam: Physician to Consult Consult to Physician [CONS] Stat Comment: Consulting Provider: Juvenal Khanna Reason For Exam: Physician to Consult Discharge Meds Discharge Medications Home Medications Xarelto 20 mg PO DAILY 03/26/21 [History Confirmed 03/26/21 Last Taken 03/25/21 21:00] ergocalciferol (vitamin D2) 50 mcg PO QDAY 03/26/21 [History Confirmed 03/26/21 Last Taken 03/26/21 09:00] loratadine [Allerclear] 10 mg PO QDAY 03/26/21 [History Confirmed 03/26/21 Last Taken 01/01/21] metformin 500 mg PO TID 03/26/21 [History Confirmed 03/26/21 Last Taken 03/26/21 09:00] sertraline 150 mg PO DAILY 03/26/21 [History Confirmed 03/26/21 Last Taken 03/26/21 09:00] metoprolol tartrate 25 mg PO BID 03/27/21 [History Confirmed 03/27/21 Last Taken Unknown] metoprolol tartrate 25 mg PO PRN PRN 03/27/21 [History Confirmed 03/27/21 Last Taken Unknown] diltiazem HCl 240 mg PO DAILY #30 cap 03/28/21 [Rx Last Taken Unknown] COURSE Hospital Course Hospital course: Interval history: History of present illness: Ms. Acosta is a 66 year old F The ED after nausea vomiting right flank pain. The patient she has been dealing with urinary tract infections recently and has been on several different antibiotics by her primary care provider. Because of nausea vomiting and severe right pain she came in today and had evaluation in the ED which showed obstructing stone in the right collecting system with hydronephrosis and hydroureter. Imaging is also consistent with pyelonephritis. She has tenderness to touch in right flank. She had a mild leukocytosis. Was afebrile. Tachycardic she does have atrial fibrillation although she was in sinus. Creatinine bumped a little bit above baseline. Lactate elevated 3.4. She denies fever but has chills. And headache. She did have a little bit of diarrhea. Dr. Tovar was contacted who will perform cystoscopy and stone removal in the morning. 03/27 Other than poor sleep for me in the hospital she has no new complaints. Right flank pain relatively controlled. Renal function stable today. 03/28 Patient gets anxious quite easily. Tacky, she says her heart rate runs between 1 60-1 30 at home. Started Cardizem a few weeks ago. Had urinary retention last night and required straight cath. This morning she was able to urinate on her own. Cardizem increased from 180 to 240 daily A: *Obstructive uropathy with hydronephrosis/ureter: s/p lithotripsy *PAF: On diltiazem and Xarelto *FENG on CKD stage III: *Anemia, chronic: *HTN: *DM: *Mild hyponatremia: *Depression: * Discharge diagnosis: Active uropathy with hydronephrosis and ureter Secondary discharge diagnosis: PAF acute kidney injury chronic anemia hypertension diabetes hyponatremia depression Time Spent with Patient Time attestation: Total time spent providing and/or coordinating discharge services: Time spent: Greater than 30 minutes EXAM Constitutional Vitals: Temp Pulse Resp BP Pulse Ox 99.2 F H 129 H 14 128/105 98 03/27/21 13:40 03/27/21 14:57 03/27/21 14:57 03/27/21 14:57 03/27/21 14:57 Discharge Data Data Completed and Pending Labs on day of discharge: Labs from last 24 hours 03/27/21 03/27/21 03/27/21 09:02 06:12 05:30 WBC RBC Hgb Hct MCV MCH MCHC RDW Plt Count MPV Neut % (Auto) Lymph % (Auto) Harlan % (Auto) Eos % (Auto) Baso % (Auto) Lymph # (Auto) Harlan # (Auto) Eos # (Auto) Baso # (Auto) Seg Neutrophils % Lymphocytes % Monocytes % (Manual) Basophils % (Manual) Absolute Neutrophils Platelet Estimate RBC Morphology Polychromasia Hypochromasia Anisocytosis Microcytosis PT 15.7 H INR 1.2 H VBG Lactic Acid Sodium 135 Potassium 3.7 Chloride 103 Carbon Dioxide 24 Anion Gap 8.0 BUN 19 Creatinine 1.2 H POC Creatinine GFR Calculation 46 Glucose 134 H Hemoglobin A1c Pending Estim Average Glucose Pending Uric Acid 7.0 Calcium 8.7 Phosphorus 3.6 Magnesium 1.6 Total Bilirubin 0.6 Direct Bilirubin < 0.2 GGT 27 AST 20 ALT 10 Alkaline Phosphatase 85 Lactate Dehydrogenase 163 Total Protein 7.0 Albumin 3.7 Globulin 3.3 Albumin/Globulin Ratio 1.1 Triglycerides 278 H Urine Color Urine Appearance Urine pH Ur Specific Tolley Urine Protein Urine Glucose (UA) Urine Ketones Urine Occult Blood Urine Nitrate Urine Bilirubin Urine Urobilinogen Ur Leukocyte Esterase Urine RBC Urine WBC Ur Squamous Epith Cells Ur Transition Epith Cell Ur Renal Epithelial Cell Calcium Carbonate Cryst Calcium Phosphate Cryst Calcium Oxalate Crystal Leucine Crystals Cystine Crystals Uric Acid Crystals Triple Phos Crystals Tyrosine Crystals Other Crystals Amorphous Crystals Urine Bacteria Cellular Casts Epithelial Casts Fatty Casts Hyaline Casts Granular Casts Waxy Casts Broad Casts RBC Casts WBC Casts Other Casts Urine Mucus Urine Trichomonas Ur Yeast w Hyphae Urine Yeast (Budding) Urine Sperm Ur Oval Fat Bodies Ur Free Fat Droplets Ur Culture Indicated? 03/27/21 03/26/21 03/26/21 05:30 20:19 18:12 WBC 10.3 RBC 4.81 Hgb 9.5 L Hct 31.1 L MCV 64.7 L MCH 19.8 L MCHC 30.5 L RDW 15.8 H Plt Count 174 MPV Neut % (Auto) 68.4 Lymph % (Auto) 20.0 Harlan % (Auto) 7.0 Eos % (Auto) 3.8 Baso % (Auto) 0.8 Lymph # (Auto) 2.05 Harlan # (Auto) 0.72 Eos # (Auto) 0.39 Baso # (Auto) 0.08 Seg Neutrophils % Lymphocytes % Monocytes % (Manual) Basophils % (Manual) Absolute Neutrophils 7.01 Platelet Estimate RBC Morphology Polychromasia Hypochromasia Anisocytosis Microcytosis PT INR VBG Lactic Acid 3.4 H Sodium Potassium Chloride Carbon Dioxide Anion Gap BUN Creatinine POC Creatinine GFR Calculation Glucose Hemoglobin A1c Estim Average Glucose Uric Acid Calcium Phosphorus Magnesium Total Bilirubin Direct Bilirubin GGT AST ALT Alkaline Phosphatase Lactate Dehydrogenase Total Protein Albumin Globulin Albumin/Globulin Ratio Triglycerides Urine Color Yellow Urine Appearance Hazy A Urine pH 5.0 Ur Specific Tolley 1.039 Urine Protein 30 A Urine Glucose (UA) Negative Urine Ketones Negative Urine Occult Blood >=1.0 A Urine Nitrate Negative Urine Bilirubin Negative Urine Urobilinogen Negative Ur Leukocyte Esterase 75 A Urine RBC > 182 H Urine WBC 5 H Ur Squamous Epith Cells 2 Ur Transition Epith Cell Ur Renal Epithelial Cell Calcium Carbonate Cryst Calcium Phosphate Cryst Calcium Oxalate Crystal Leucine Crystals Cystine Crystals Uric Acid Crystals Triple Phos Crystals Tyrosine Crystals Other Crystals Amorphous Crystals Urine Bacteria 0 Cellular Casts Epithelial Casts Fatty Casts Hyaline Casts Granular Casts Waxy Casts Broad Casts RBC Casts WBC Casts Other Casts Urine Mucus Urine Trichomonas Ur Yeast w Hyphae Urine Yeast (Budding) Urine Sperm Ur Oval Fat Bodies Ur Free Fat Droplets Ur Culture Indicated? No 03/26/21 03/26/21 03/26/21 18:12 18:12 18:10 WBC 12.9 H RBC 5.56 H Hgb 10.8 L Hct 35.3 L MCV 63.5 L MCH 19.4 L MCHC 30.6 L RDW 15.8 H Plt Count 212 MPV 10.5 H Neut % (Auto) Lymph % (Auto) Harlan % (Auto) Eos % (Auto) Baso % (Auto) Lymph # (Auto) Harlan # (Auto) Eos # (Auto) Baso # (Auto) Seg Neutrophils % 90 H Lymphocytes % 5 L Monocytes % (Manual) 4 Basophils % (Manual) 1 Absolute Neutrophils Platelet Estimate Normal RBC Morphology Abnormal A Polychromasia 1+ A Hypochromasia 1+ A Anisocytosis 1+ A Microcytosis 2+ A PT INR VBG Lactic Acid Sodium 132 L Potassium 4.1 Chloride 98 Carbon Dioxide 19 L Anion Gap 15.0 BUN 23 Creatinine 1.2 H POC Creatinine 1.4 H GFR Calculation 46 Glucose 193 H Hemoglobin A1c Estim Average Glucose Uric Acid Calcium 9.8 Phosphorus Magnesium Total Bilirubin 1.1 H Direct Bilirubin GGT AST 17 ALT 11 Alkaline Phosphatase 102 Lactate Dehydrogenase Total Protein 8.1 Albumin 4.2 Globulin 3.9 H Albumin/Globulin Ratio 1.1 Triglycerides Urine Color Yellow Urine Appearance Clear Urine pH 5.5 Ur Specific Tolley >= 1.030 Urine Protein >=300 mg/dl A Urine Glucose (UA) Negative Urine Ketones Trace A Urine Occult Blood Large A Urine Nitrate Negative Urine Bilirubin Small A Urine Urobilinogen Normal Ur Leukocyte Esterase Small A Urine RBC TNP Urine WBC TNP Ur Squamous Epith Cells TNP Ur Transition Epith Cell TNP Ur Renal Epithelial Cell TNP Calcium Carbonate Cryst TNP Calcium Phosphate Cryst TNP Calcium Oxalate Crystal TNP Leucine Crystals TNP Cystine Crystals TNP Uric Acid Crystals TNP Triple Phos Crystals TNP Tyrosine Crystals TNP Other Crystals TNP Amorphous Crystals TNP Urine Bacteria TNP Cellular Casts TNP Epithelial Casts TNP Fatty Casts TNP Hyaline Casts TNP Granular Casts TNP Waxy Casts TNP Broad Casts TNP RBC Casts TNP WBC Casts TNP Other Casts TNP Urine Mucus TNP Urine Trichomonas TNP Ur Yeast w Hyphae TNP Urine Yeast (Budding) TNP Urine Sperm TNP Ur Oval Fat Bodies TNP Ur Free Fat Droplets TNP Ur Culture Indicated? No Discharge Plan Patient/Caregiver Discharge Instructions Activity: increase activity as tolerated Diet: Consistent Carbohydrate Instructions: Ciprofloxacin (By mouth), Kidney Stones (GEN), Sepsis (GEN) Activity Restrictions/Additional Instructions: Follow-up with your Primary Care Physician (we will begin the process of getting you established with a new Primary Care Physician) Continue with a consistent carbohydrate diet as suggested Increase activity as tolerated Prescriptions: New diltiazem HCl 240 mg Capsule,Extended Release 24hr 240 mg PO DAILY Qty: 30 RF: 0 Continued metformin 500 mg tablet 500 mg PO TID RF: 0 sertraline 100 mg tablet 150 mg PO DAILY RF: 0 loratadine [Allerclear] 10 mg Tablet 10 mg PO QDAY RF: 0 Xarelto 20 mg tablet 20 mg PO DAILY RF: 0 ergocalciferol (vitamin D2) 50 mcg (2,000 unit) Tablet 50 mcg PO QDAY RF: 0 metoprolol tartrate 25 mg Tablet 25 mg PO BID RF: 0 metoprolol tartrate 25 mg Tablet 25 mg PO PRN PRN (Reason: HR greater than 100) RF: 0 Discontinued diltiazem HCl 180 mg capsule,extended release 24 hr 180 mg PO DAILY RF: 0 Follow Up Plan Follow up with: Yahir Tovar MD [Physician] - 04/02/21 2:30 pm () Patient Disposition: Home, Self-Care Prognosis: Good Overall status at discharge: patient is progressing back to baseline Discharge Orders: Discharge Order (Routine); Ordered 03/28/21 Ordered By: Juvenal Khanna [facility] VTE Deep Vein Thrombosis/Pulmonary Embolism Present on Admission: No
[2021-03-27 20:03] LABS: Estimated Average Glucose(eAG) 140 mg/dL; Hemoglobin A1C 6.5 % Hgb (4.0-6.0)
[2021-03-27] MEDS: METOPROLOL TARTRATE 25 MG TABLET PO SCH (21:29)
[2021-03-28] MEDS: METOPROLOL TARTRATE 5 MG/5 ML VIAL IV PRN ×2 (02:01→06:33)
[2021-03-28] MEDS: 0.9 % SODIUM CHLORIDE 10 ML SYRINGE IV SCH ×2 (02:02→05:32)
[2021-03-28 07:09] LABS: Blood Urea Nitrogen 19 mg/dL (8-23); Calcium 9.1 mg/dL (8.6-10.4); Carbon Dioxide 22 mmol/L (22-30); Chloride 102 mmol/L (96-108); Glomerular Filtration Rate 52; Glucose 153 mg/dL (70-105)
[2021-03-28] MEDS: INSULIN LISPRO 1 UNIT/0.01 ML UNIT SQ SCH (07:32)
--- NOTE | 2021-03-28 07:32 | Internal Med Progress Note ---
SUBJECTIVE Subjective Patient information: Note initiated : 03/28/21 at 7:29 am Service Date, if different from initiated Date: [] Patient: Aubrie Acosta 66 y/o F admitted on 03/26/21 for flank pain. Chief Complaint: [] Interval history: History of present illness: Ms. Acosta is a 66 year old F The ED after nausea vomiting right flank pain. The patient she has been dealing with urinary tract infections recently and has been on several different antibiotics by her primary care provider. Because of nausea vomiting and severe right pain she came in today and had evaluation in the ED which showed obstructing stone in the right collecting system with hydronephrosis and hydroureter. Imaging is also consistent with pyelonephritis. She has tenderness to touch in right flank. She had a mild leukocytosis. Was afebrile. Tachycardic she does have atrial fibrillation although she was in sinus. Creatinine bumped a little bit above baseline. Lactate elevated 3.4. She denies fever but has chills. And headache. She did have a little bit of d iarrhea. Dr. Tovar was contacted who will perform cystoscopy and stone removal in the morning. 03/27 Other than poor sleep for me in the hospital she has no new complaints. Right flank pain relatively controlled. Renal function stable today. 03/28 Patient gets anxious quite easily. Tacky, she says her heart rate runs between 1 60-1 30 at home. Started Cardizem a few weeks ago. Had urinary retention last night and required straight cath. Review of Systems: Mild headache. Denies fever/chills/nausea/vomiting/chest or abdominal pain/cough/dyspnea/diarrhea. Otherwise see above. Constitutional Vitals: Vital Signs Temp Pulse Resp BP Pulse Ox 98.6 F 131 H 12 152/96 98 03/28/21 04:00 03/28/21 03:01 03/28/21 05:01 03/28/21 05:01 03/28/21 05:01 Period Temp Pulse Resp BP Sys/Grey Pulse Ox Last 24 Hr 97.2 F-99.2 F 63-133 10-24 112-181/80-146 95-100 Intake and Output 03/27/21 03/28/21 03/28/21 21:59 05:59 13:59 Intake Total 290 475 Output Total 250 725 Balance 40 -250 Weight 95.889 kg Intake & Output: Intake & Output 03/27/21 03/28/21 03/28/21 21:59 05:59 13:59 Intake Total 290 475 Output Total 250 725 Balance 40 -250 Weight 95.889 kg Intake: IV 50 Rocephin 2 gm In Dextrose 5% in 50 Water 50 ml @ 100 mls/hr IV Q24H [facility] Rx#:[id number] Oral 240 475 Output: Urine Catheter Amount 550 Straight 550 Void Amount 250 175 Other: Meal Jello Percent of Meal Consumed 75% Feeding Ability Independent Urine Appearance Clear Cloudy Hematuria Stones/Calculi Straight Cloudy Urine Color Blood Tinged Red Brown Straight Red Brown Urine Odor Strong Exam: General: Alert, Awake, No acute Distress Eyes/N/T: EOMI, Head/Neck: neck supple CV: tachy but regular, No murmurs, Pulm: Clear b/l, no wheezing/rhonchi/rales Abd: soft, nontender, +BS x4. Ext: no clubbing/cyanosis/edema Neuro: Alert, no focal deficits, moves all extremities, Skin: warm/dry OBJ DATA Labs CBC & Chem 7: 03/27/21 05:30 03/28/21 05:10 Labs: Abnormal Lab Results 03/28/21 03/27/21 03/27/21 05:10 09:02 06:12 WBC RBC Hgb Hct MCV MCH MCHC RDW MPV Seg Neutrophils % Lymphocytes % RBC Morphology Polychromasia Hypochromasia Anisocytosis Microcytosis PT 15.7 H INR 1.2 H VBG Lactic Acid Sodium Carbon Dioxide Creatinine POC Creatinine Glucose 153 H Hemoglobin A1c 6.5 H Total Bilirubin Globulin Triglycerides Urine Appearance Urine Protein Urine Ketones Urine Occult Blood Urine Bilirubin Ur Leukocyte Esterase Urine RBC Urine WBC 03/27/21 03/27/21 03/26/21 05:30 05:30 20:19 WBC RBC Hgb 9.5 L Hct 31.1 L MCV 64.7 L MCH 19.8 L MCHC 30.5 L RDW 15.8 H MPV Seg Neutrophils % Lymphocytes % RBC Morphology Polychromasia Hypochromasia Anisocytosis Microcytosis PT INR VBG Lactic Acid Sodium Carbon Dioxide Creatinine 1.2 H POC Creatinine Glucose 134 H Hemoglobin A1c Total Bilirubin Globulin Triglycerides 278 H Urine Appearance Hazy A Urine Protein 30 A Urine Ketones Urine Occult Blood >=1.0 A Urine Bilirubin Ur Leukocyte Esterase 75 A Urine RBC > 182 H Urine WBC 5 H 03/26/21 03/26/21 03/26/21 18:12 18:12 18:12 WBC 12.9 H RBC 5.56 H Hgb 10.8 L Hct 35.3 L MCV 63.5 L MCH 19.4 L MCHC 30.6 L RDW 15.8 H MPV 10.5 H Seg Neutrophils % 90 H Lymphocytes % 5 L RBC Morphology Abnormal A Polychromasia 1+ A Hypochromasia 1+ A Anisocytosis 1+ A Microcytosis 2+ A PT INR VBG Lactic Acid 3.4 H Sodium 132 L Carbon Dioxide 19 L Creatinine 1.2 H POC Creatinine 1.4 H Glucose 193 H Hemoglobin A1c Total Bilirubin 1.1 H Globulin 3.9 H Triglycerides Urine Appearance Urine Protein Urine Ketones Urine Occult Blood Urine Bilirubin Ur Leukocyte Esterase Urine RBC Urine WBC 03/26/21 18:10 WBC RBC Hgb Hct MCV MCH MCHC RDW MPV Seg Neutrophils % Lymphocytes % RBC Morphology Polychromasia Hypochromasia Anisocytosis Microcytosis PT INR VBG Lactic Acid Sodium Carbon Dioxide Creatinine POC Creatinine Glucose Hemoglobin A1c Total Bilirubin Globulin Triglycerides Urine Appearance Urine Protein >=300 mg/dl A Urine Ketones Trace A Urine Occult Blood Large A Urine Bilirubin Small A Ur Leukocyte Esterase Small A Urine RBC Urine WBC Meds: Medications Acetaminophen (Acetaminophen 325 Mg Tablet) 650 mg PO Q6HP PRN PRN Reason: PAIN/FEVER > 101 Hydrocodone Bitart/Acetaminophen (Hydrocodone/Apap 5/325mg Tablet) 1 tab PO Q4HP PRN PRN Reason: PAIN LEVEL 3-6 Last Admin: 03/27/21 19:36 Dose: 1 tab Documented by: Albuterol/Ipratropium (Ipratropium/Albuterol 3 Ml Ampul.Neb) 3 ml NEB Q4HP PRN PRN Reason: Shortness Of Breath Dextrose (Dextrose 50% 50 Ml Vial) 0 ml IV UD PRN PRN Reason: Hypoglycemia Diagnostic Test (Pha) (Accu-Chek 1 Each Strip) 1 each FS ACHS [facility] Last Admin: 03/28/21 07:23 Dose: 1 each Documented by: Diltiazem HCl (Diltiazem 180 Mg Cap.Xl.24h) 180 mg PO DAILY [facility] Last Admin: 03/27/21 17:08 Dose: 180 mg Documented by: Glucose (Dextrose 31 Gm Oral.Susp) 15 gm PO PRN PRN PRN Reason: Hypoglycemia Potassium Chloride 40 meq/ (Dextrose) 520 mls @ 130 mls/hr IV UD PRN PRN Reason: Potassium < 3 Magnesium Sulfate (Magnesium Sulfate) 2 gm in 50 mls @ 50 mls/hr IV UD PRN PRN Reason: Magnesium </= 1.6 Ceftriaxone Sodium 2 gm/ (Dextrose) 50 mls @ 100 mls/hr IV Q24H [facility]; Protocol Last Infusion: 03/27/21 14:56 Dose: Infused Documented by: Insulin Human Lispro (Insulin Lispro 1 Unit/0.01 Ml Unit) 0 unit SQ ACHS [facility]; Protocol Last Admin: 03/27/21 21:29 Dose: 4 units Documented by: Metoprolol Tartrate (Metoprolol Tartrate 5 Mg/5 Ml Vial) 5 mg IV Q2HP PRN PRN Reason: Tachyarrhythmias HR>110 Last Admin: 03/28/21 06:33 Dose: 5 mg Documented by: Metoprolol Tartrate (Metoprolol Tartrate 25 Mg Tablet) 25 mg PO BID [facility] Last Admin: 03/27/21 21:29 Dose: 25 mg Documented by: Morphine Sulfate (Morphine 4 Mg/Ml Vial) 0 mg IV Q3HP PRN PRN Reason: Pain Last Admin: 03/27/21 05:27 Dose: 1 mg Documented by: Ondansetron HCl (Ondansetron 4 Mg/2 Ml Vial) 4 mg IV Q4HP PRN PRN Reason: Nausea And Vomiting Pneumococcal Polyvalent Vaccine (Pneumococcal 23-Renetta P-Sac Vac 0.5 Ml Syringe) 0.5 ml IM .ONCE ONE Stop: 03/28/21 10:01 Polyethylene Glycol (Polyethylene Glycol 3350 17 Gm Packet) 17 gm PO DAILYP PRN PRN Reason: Constipation Potassium Chloride (Potassium Chloride 20 Meq Tablet) 40 meq PO UD PRN PRN Reason: Potssium is 3-3.5 Potassium Chloride (Potassium Chloride 20 Meq Tablet) 40 meq PO UD PRN PRN Reason: Potassium < 3 Senna (Sennosides 1 Tablet) 2 tab PO DAILYP PRN PRN Reason: Constipation Sertraline HCl (Sertraline 100 Mg Tablet) 150 mg PO DAILY [facility] Last Admin: 03/27/21 08:32 Dose: Not Given Documented by: Sodium Chloride (0.9 % Sodium Chloride 10 Ml Syringe) 5 ml IV Q8 ODALIS Last Admin: 03/28/21 05:32 Dose: Not Given Documented by: A/P Narrative A/P Narrative: A: *Obstructive uropathy with hydronephrosis/ureter: *Pyelonephritis: *Sepsis with endorgan dysfunction: improved -elevated lactate on admit *UR: *PAF: On diltiazem and Xarelto -sinus but tachy (anxiety contributing) *FENG on CKD stage III: resolved *Anemia, chronic: *HTN: *DM: *Mild hyponatremia: resolved *Depression/Anxiety: * P: -Dr. Tovar for urology -UR defer to urology -Rocephin pending UC/BC -SSI, hold metformin for now -Continue home diltiazem(increase), hold ARB for FENG -Hold Metformin for now - -pt/to -ppx: xaralto full code Time Spent With Patient Time: Total time spent is greater than 50% in coordination of care (as documented) at patient's floor/unit and/or counseling patient: QUALITY VTE Deep Vein Thrombosis/Pulmonary Embolism Present on Admission: No
[2021-03-28] MEDS: HYDROcodone/APAP 5/325MG TABLET PO PRN (07:35)
[2021-03-28] MEDS: SERTRALINE 100 MG TABLET PO SCH (08:19)
[2021-03-28] MEDS: METOPROLOL TARTRATE 25 MG TABLET PO SCH (08:20)
--- NOTE | 2021-03-28 08:29 | Surgical Pathology Report ---
Histology Microscopic Diagnosis Specimen A- MINERAL MATERIAL URETERAL, EXTRACTION: --- CALCULUS (GROSS DIAGNOSIS), SUBMITTED FOR CHEMICAL ANALYSIS. (DMT:[email or web address]) Gross Description Received fresh with the patient information and designated as ureteral stone, is a 0.5 x 0.4 x 0.3 cm rough surfaced brown-lynn fragment. The specimen will be submitted for chemical analysis. (KGW:[email or web address]) Electronically Signed Marcello Marlow MD, FCAP Electronically Signed 03/28/2021 08:28
[2021-03-28] MEDS ORDERED: hydrOXYzine 25 MG TABLET PO PRN ×2 (08:42→10:21)
[2021-03-28] MEDS ORDERED: RIVAROXABAN 20 MG TABLET PO SCH ×2 (09:00→17:30)
[2021-03-28] MEDS ORDERED: DILTIAZEM 240 MG CAP.XL.24H PO SCH (09:00)
[2021-03-28] MEDS: cefTRIAXone 2 GM in DEXTROSE 5% IN WATER 50 ML IV SCH (09:29)
[2021-03-28] MEDS ORDERED: PNEUMOCOCCAL 23-VAL P-SAC VAC 0.5 ML SYRINGE IM ONE (10:00)
[2021-03-28] MEDS ORDERED: MAGNESIUM SULFATE 2 GM/50 ML BAG IV PRN (10:21)
[2021-03-28] MEDS ORDERED: METOPROLOL TARTRATE 5 MG/5 ML VIAL IV PRN (10:21)
[2021-03-28] MEDS ORDERED: HYDROcodone/APAP 5/325MG TABLET PO PRN (10:21)
[2021-03-28] MEDS ORDERED: POTASSIUM CHLORIDE 40 MEQ in DEXTROSE 5% IN WATER 500 ML IV PRN (10:21)
[2021-03-28] MEDS ORDERED: DEXTROSE 50% 50 ML VIAL IV PRN (10:21)
[2021-03-28] MEDS ORDERED: SENNOSIDES 1 TABLET PO PRN (10:21)
[2021-03-28] MEDS ORDERED: ACETAMINOPHEN 325 MG TABLET PO PRN (10:21)
[2021-03-28] MEDS ORDERED: IPRATROPIUM/ALBUTEROL 3 ML AMPUL.NEB NEB PRN (10:21)
[2021-03-28] MEDS ORDERED: POLYETHYLENE GLYCOL 3350 17 GM PACKET PO PRN (10:21)
[2021-03-28] MEDS ORDERED: DEXTROSE 31 GM ORAL.SUSP PO PRN (10:21)
[2021-03-28] MEDS ORDERED: morphine 4 MG/ML VIAL IV PRN (10:21)
[2021-03-28] MEDS ORDERED: ONDANSETRON 4 MG/2 ML VIAL IV PRN (10:21)
[2021-03-28] MEDS ORDERED: POTASSIUM CHLORIDE 20 MEQ TABLET PO PRN ×2 (10:21)
[2021-03-28] MEDS ORDERED: INSULIN LISPRO 1 UNIT/0.01 ML UNIT SQ SCH (11:30)
--- NOTE | 2021-03-28 12:47 | General Surgery Progress Note ---
SUBJECTIVE Subjective Patient information: Note initiated : 03/28/21 at 12:45 pm Service Date, if different from initiated Date: [] Patient: Aubrie Acosta 66 y/o F admitted on 03/26/21 for flank pain. Chief Complaint: [] On diet without difficulty. Voiding easily after passing a stone fragment with clear urine. Resting comfortably Constitutional Vitals: Vital Signs Temp Pulse Resp BP Pulse Ox 98.6 F 73 12 141/83 98 03/28/21 04:00 03/28/21 09:06 03/28/21 09:06 03/28/21 09:02 03/28/21 09:06 Period Temp Pulse Resp BP Sys/Grey Pulse Ox Last 24 Hr 98.2 F-99.2 F 42-137 10-24 106-181/62-146 96-100 Intake and Output 03/27/21 03/28/21 03/28/21 21:59 05:59 13:59 Intake Total 290 475 50 Output Total 250 725 350 Balance 40 -250 -300 Weight 211 lb 6.4 oz Intake & Output: Intake & Output 03/27/21 03/28/21 03/28/21 21:59 05:59 13:59 Intake Total 290 475 50 Output Total 250 725 350 Balance 40 -250 -300 Weight 211 lb 6.4 oz Intake: IV 50 50 Rocephin 2 gm In Dextrose 5% in 50 50 Water 50 ml @ 100 mls/hr IV Q24H [facility] Rx#:[id number] Oral 240 475 Output: Urine Catheter Amount 550 Straight 550 Void Amount 250 175 350 Other: Meal Jello Percent of Meal Consumed 75% Feeding Ability Independent Urine Appearance Clear Cloudy Hematuria Stones/Calculi Straight Cloudy Urine Color Blood Tinged Red Brown Straight Red Brown Urine Odor Strong A/P Assessment and plan (1) Obstructive uropathy: Status: Acute Comment: Safe to be discharged if cleared medically. Return in 1 week for stent removal and discussion of stone analysis Time Spent With Patient Time: Total time spent is greater than 50% in coordination of care (as documented) at patient's floor/unit and/or counseling patient:
[2021-03-28] MEDS ORDERED: 0.9 % SODIUM CHLORIDE 10 ML SYRINGE IV SCH (14:00)
[2021-03-28] MEDS ORDERED: METOPROLOL TARTRATE 25 MG TABLET PO SCH (21:00)
[2021-03-29] MEDS ORDERED: SERTRALINE 100 MG TABLET PO SCH (09:00)
[2021-03-29] MEDS ORDERED: cefTRIAXone 2 GM in DEXTROSE 5% IN WATER 50 ML IV SCH (09:00)
[2021-03-29] MEDS ORDERED: DILTIAZEM 240 MG CAP.XL.24H PO SCH (09:00)
--- NOTE | 2021-03-29 10:36 | Operative Note ---
Operative Note Operative Note: Preop diagnosis--right ureteral calculus Surgeon--Yahir Tovar Operation performed--right ureteroscopic laser lithotripsy with stenting Postop diagnosis--same date of operation 03/27/2021 date of dictation 03/29/2021 Anesthesia General Complications--none Blood loss none Drain--6 x 26 double-J ureteral stent Indication--this is a 66-year-old female had rapid onset of severe right flank pain and right lower quadrant abdominal pain. She was found to have a large distal stone on the right and is in at this time for definitive intervention Description--placed on the operating table and after confirming a timeout for the patient's procedure, position and preop antibiotic, general anesthesia was induced and she was placed in a lithotomy position. After standard prep and drape, a 21 Bh[place]anese cystoscope was advanced into the bladder under direct vision. The urethra was normal the bladder itself appeared normal. She did have some cystocele and the right ureteral orifice was somewhat difficult to cannulate. Finally with a deflecting bridge and a 70 degree lens a safety tip wire was a advanced through the orifice and up to the kidney where it was coiled. With the wire in place a semirigid ureteroscope was advanced adjacent to the wire up to the stone. The stone was easily identified. A 365 m laser fiber was used with the holmium laser set at 1 and 10. The stone was broken up into multiple pieces. One of the larger pieces was sent as a specimen after removing it with a stone basket. The other fragments were parked in the bladder and ultimately irrigated out. Following that a 6 [place]anese by 26 cm double-J stent was advanced over the guidewire. The string was left attached and a knot was tied adjacent to the stent. She was transferred to postanesthesia care unit in satisfactory condition.
--- NOTE | 2021-03-30 14:38 | Surgical Pathology Report ---
Histology Microscopic Diagnosis Specimen A- MINERAL MATERIAL, RIGHT URETERAL, EXTRACTION: --- CALCULUS (GROSS DIAGNOSIS), SUBMITTED FOR CHEMICAL ANALYSIS. (EBD:[email or web address]) Gross Description Received in fresh designated as right ureteral stone, is a possible stone fragment that is 0.6 x 0.3 x 0.3 cm. The specimen will be sent for chemical analysis. (SCB:kristan) Electronically Signed Faviola Stallworth MD, FCAP Electronically Signed 03/30/2021 14:35
[2021-04-03 12:11] LABS: Calculus Weight 0.011 g; Specimen Source KIDNEY STONE
== END 2021-03-28 14:35 | disposition home or self-care (01) | DRG 854 ==
LOC: ED 17:51 → ICU 21:30
PROVIDERS: ADMIT Internal Medicine; ATTEND Internal Medicine